=== PATIENT | female | born 1985 | race Caucasian/White ===

== ENCOUNTER 2017-09-06 19:03 | Emergency (ER) | payer SELFPAY ==
[2017-09-06] MEDS ORDERED: ONDANSETRON ODT 8 MG TAB SL ONE (19:29)
[2017-09-06] MEDS ORDERED: PROMETHAZINE HCL INJ 25 MG in SODIUM CHLORIDE 0.9% 50ML 50 ML IVPB ONE (19:29)
[2017-09-06] MEDS ORDERED: SODIUM CHLORIDE 0.9% 1000ML 1,000 ML IVS ONE ×2 (19:29→21:58)
[2017-09-06] MEDS ORDERED: KETOROLAC TROMETHAMINE INJ 30 MG/ML VIAL IV ONE (19:29)
[2017-09-06] MEDS ORDERED: SODIUM CHLORIDE 0.9% 50ML 50 ML ONE (19:41)
[2017-09-06] MEDS ORDERED: PROMETHAZINE HCL INJ 25 MG/ML VIAL ONE (19:41)
--- NOTE | 2017-09-06 21:52 | US ---
EXAM DESCRIPTION: Gall Bladder CLINICAL HISTORY: 31 years Female, pancreatitis, eval pancreas, gb and ducts COMPARISON: None. TECHNIQUE: Sonographic imaging of the gallbladder was performed. FINDINGS: Liver demonstrates homogenous echogenicity and measures 14.1 cm longitudinally. Normal directional flow in the main portal vein is noted. Several small shadowing stones in the dependent gallbladder are present measuring up to 8 mm. No evidence of gallbladder wall thickening. Gallbladder is normal in size. Common bile duct measures up to 9 mm in width and is enlarged. No obvious intrahepatic biliary ductal dilatation. Visualized pancreatic head and body appear slightly hypoechoic which may be related to acute pancreatitis. IMPRESSION: 1. Cholelithiasis. Dilatation of the common bile duct which may be related to choledocholithiasis. Follow-up with MRCP can be obtained as appropriate. 2. Questionable findings of acute pancreatitis. Electronically signed by: Yan Figueroa MD 09/06/2017 9:50 PM CDT
--- NOTE | 2017-09-06 22:27 | ED.PDOC ---
History of Present Illness - General Chief Complaint: Abdominal Pain Stated Complaint: upper middle abd pain Time Seen by Provider: 09/06/17 19:06 Source: patient Exam Limitations: no limitations - History of Present Illness Initial Comments: the patient is a 31-year-old female presenting to the emergency room secondary to 3 days of symptoms of some nausea with increasing abdominal pain and increasing frequency of vomiting. She presents with abdominal pain at a 10 out of 10. She is writhing in the bed. No fevers. No blood in the vomitus. No constipation or diarrhea. No history of any pancreatitis. No gallbladder problems in the past. No history of any significant gastritis. Aside from the gallstones found today she does not have any history that would put her at markedly increased risk for pancreatitis. Severity: severe Improving Factors: nothing Worsening Factors: eating Associated Symptoms: loss of appetite, malaise, nausea/vomiting Allergies/Adverse Reactions: Allergies Aspirin Allergy (Verified 09/06/17 19:19) Morphine Allergy (Verified 09/06/17 19:19) demeral Allergy (Uncoded 09/06/17 19:19) Review of Systems - Review of Systems Constitutional: States: malaise EENTM: States: no symptoms reported Respiratory: States: no symptoms reported Cardiology: States: no symptoms reported Gastrointestinal/Abdominal: States: abdominal pain, nausea, vomiting Genitourinary: States: no symptoms reported Musculoskeletal: States: no symptoms reported Skin: States: no symptoms reported Neurological: States: no symptoms reported Endocrine: States: no symptoms reported All other Systems: No Change from Baseline Past Medical History (General) - Patient Medical History Hx Diabetes: No - Vaccination History Immunizations Up to Date: No Family Medical History - Family History Father Family History: Unknown Physical Exam - Physical Exam General Appearance: Alert, Obvious distress Eye Exam: bilateral normal Ears, Nose, Throat: hearing grossly normal, normal ENT inspection, normal pharynx Neck: full range of motion, supple Respiratory: lungs clear, normal breath sounds, no respiratory distress, no accessory muscle use Cardiovascular/Chest: normal peripheral pulses, regular rate, rhythm, no edema Peripheral Pulses: radial,right: 2+, radial,left: 2+, dorsalis pedis,right: 2+, dorsalis pedis,left: 2+ Gastrointestinal/Abdominal: soft, other - periumbilical to epigastric discomfort palpation. No bruising. Rectal Exam: deferred Back Exam: normal inspection, no CVA tenderness, no vertebral tenderness Extremity: normal range of motion, non-tender, normal inspection, no pedal edema , normal capillary refill Neurologic: leverman II-XII nml as tested, alert, normal mood/affect, oriented x 3, other - the patient does look pale and dry Skin Exam: pallor Comments: Vital Signs - 24 hr 09/06/17 09/06/17 19:15 22:15 Temperature 97.4 F L 99.4 F Pulse Rate [ 58 L 58 L Left] Respiratory 18 18 Rate Blood Pressure 140/81 154/94 [Right Arm] O2 Sat by Pulse 100 98 Oximetry Progress - Progress Progress: 09/06/17 22:29 the patient's 31-year-old female presenting with acute pancreatitis at her first episode. Lipase is markedly elevated at 12,900. Review of her risk factors does not show any outstanding risk factors for pancreatitis except for the gallstones seen in the right upper quadrant ultrasound today. The dilated common bile duct may possibly be indicating a stone obstructing the distal aspect of the pancreatic duct. The patient is being transferred for further evaluation and higher level of care. She has received 2 L of IV fluids and a dose of Phenergan. She reports serious allergies to morphine and Demerol however she has reported that she can take Dilaudid. Phenergan seems to calm the symptoms down significantly. - Results/Orders Results/Orders: laboratory work from the clinic today: White blood cell count 9600, hemoglobin of 13, hematocrit 40, platelets 261, sodium 141, potassium 3.7, chloride 102, bicarbonate 30, BUN of 12, creatinine 0.57, calcium of 9.3, lipase of 12,960, amylase greater than 6000, AST of 111, ALT of 144, alkaline phosphatase of 75. Laboratory Tests 09/06/17 09/06/17 09/06/17 19:25 19:31 19:37 Lactic Acid LD Total Urine Color Yellow Urine Appearance Cloudy Urine pH >= 9.0 H* Ur Specific [place] 1.015 Urine Protein 100 H Urine Glucose (UA) Negative Urine Ketones 15 H Urine Blood Negative Urine Nitrite Negative Urine Bilirubin Negative Urine Urobilinogen 4.0 H Ur Leukocyte Esterase Negative Urine RBC 0 Urine WBC 0-1 Ur Epithelial Cells 3-5 Amorphous Sediment 4+ Urine Bacteria 0 Urine HCG, Qual Negative Urine Opiates Screen Negative Urine Barbiturates Negative Ur Phencyclidine Scrn Negative U Amphetamin/Meth Scrn Negative U Benzodiazepines Scrn Negative U Cocaine Metab Screen Negative U Cannabinoids Screen Negative 09/06/17 09/06/17 19:54 19:54 Lactic Acid 1.6 LD Total 159 Urine Color Urine Appearance Urine pH Ur Specific [place] Urine Protein Urine Glucose (UA) Urine Ketones Urine Blood Urine Nitrite Urine Bilirubin Urine Urobilinogen Ur Leukocyte Esterase Urine RBC Urine WBC Ur Epithelial Cells Amorphous Sediment Urine Bacteria Urine HCG, Qual Urine Opiates Screen Urine Barbiturates Ur Phencyclidine Scrn U Amphetamin/Meth Scrn U Benzodiazepines Scrn U Cocaine Metab Screen U Cannabinoids Screen right upper quadrant ultrasound shows a gallbladder with numerous small stones. Common bile duct is dilated to 9 mm. Pancreas is difficult to see secondary to overlying gas however does appear hypoechoic consistent with pancreatitis. Departure - Departure Clinical Impression: Acute pancreatitis due to calculus of common bile duct Disposition: Transfer to Hospital Condition: Serious Departure Forms: ED Discharge - Pt. Copy, Patient Portal Self Enrollment Transfer to Outside Facility - Transfer Information Accepting Provider:: dr stokes Accepting Facility: [facility] Reason for Transfer: required specialist not available
[2017-09-06 22:54] VITALS: BP 137/84; TEMP 99.1; O2SAT 99
== END 2017-09-06 23:15 | disposition short-term general hospital (02) ==
LOC: ER 19:03
DX: K85.10 Biliary acute pancreatitis without necrosis or infection (principal)
CPT/HCPCS: 36415; 76705; 80307; 81001; 81025; 83605; 83615; 87040; A4216; J1885; J2550; J7030

== ENCOUNTER → 2017-09-06 | Outpatient (CLI) | payer SELFPAY | LOC: LAB.O 15:06 | PROVIDERS: ATTEND Nurse Practitioner Family | DX: R10.84 Generalized abdominal pain (principal) ==

== ENCOUNTER → 2017-09-06 | Outpatient (CLI) | payer SELFPAY ==
--- NOTE | 2017-09-06 17:22 | RAD ---
EXAM DESCRIPTION: Abdomen Series CLINICAL HISTORY: 31 years Female, GENERALIZED ABDOMINAL PAIN COMPARISON: None. FINDINGS: Chest x-ray shows normal size of the heart with normal vascularity. The lungs are clear. No infiltrate or pleural effusion. No free air under the diaphragm. Upright view the abdomen shows no free air or abnormal air-fluid levels. Moderate amount of fecal material in the colon. If you have calcifications in the pelvis may be phleboliths plus colonic contents. IMPRESSION: Moderate fecal burden. Otherwise negative. Electronically signed by: Tio Castellano MD 09/06/2017 5:20 PM CDT
== END ==
LOC: RAD 15:19
PROVIDERS: ATTEND Nurse Practitioner Family
DX: R10.84 Generalized abdominal pain (principal)

== ENCOUNTER → 2018-03-16 | Outpatient (CLI) | payer BC ==
--- NOTE | 2018-03-16 17:32 | RAD ---
EXAM DESCRIPTION: Cervical Spine,3 Views CLINICAL HISTORY: CERVICALGIA COMPARISON: None Available. TECHNIQUE: AP/lateral/ open-mouth odontoid FINDINGS: Anatomic alignment of cervical vertebrae is seen on lateral view with visualization of C1-C7. Degenerative spurring is seen around the dens. No fracture or subluxation. No prevertebral soft tissue swelling. Normal craniocervical alignment. There is preservation of the spinal laminar line. No spinous process avulsion. Odontoid base appears intact. Normal alignment of the lateral margins of C1 and C2. AP view shows normal spinous process alignment with normal alignment of the lateral masses. Lung apices are clear. IMPRESSION: Negative for fracture or posttraumatic subluxation. Electronically signed by: Tio Castellano MD 03/16/2018 5:30 PM [facility]
== END ==
LOC: RAD 16:58
PROVIDERS: ATTEND Nurse Practitioner Family
DX: M54.2 Cervicalgia (principal)

== ENCOUNTER → 2018-06-14 | Outpatient (CLI) | payer BC | LOC: LAB.O 14:47 | PROVIDERS: ATTEND Nurse Practitioner Family | DX: R11.2 Nausea with vomiting, unspecified (principal) ==

== ENCOUNTER 2018-07-14 18:00 | Emergency (ER) | payer BC, OTHER ==
[2018-07-14 18:13] VITALS: TEMP 98.6; O2SAT 100
--- NOTE | 2018-07-14 18:14 | ED.PDOC ---
History of Present Illness - General Chief Complaint: Lower Extremity Injury Stated Complaint: dropped TV of right foot Time Seen by Provider: 07/14/18 18:11 Source: patient, RN notes reviewed Exam Limitations: no limitations Additional Information: 32 YEAR OLD DROPPED A BOX TV ON TO THE RIGHT FOOT 2 HOURS AGO HERE WITH PAIN ON THE DISTAL RIGHT FOOT SHE IS 8 WEEKS AT THIS TIME - History of Present Illness Timing/Duration: 1-3 hours Severity: mild Improving Factors: nothing Worsening Factors: nothing Associated Symptoms: denies symptoms Allergies/Adverse Reactions: Allergies Aspirin Allergy (Verified 09/06/17 19:19) Morphine Allergy (Verified 09/06/17 19:19) demeral Allergy (Uncoded 09/06/17 19:19) Home Medications: Ambulatory Orders Multivit-Min W/Fe-FA [Pre-Linda Formula] 1 tab PO DAILY 06/23/18 Acetamin W/Cod #3 Tab [Tylenol w/CODEINE #3] 1 ea PO Q6HR PRN #40 tab 07/14/18 Review of Systems - Review of Systems Constitutional: States: no symptoms reported EENTM: States: no symptoms reported Respiratory: States: no symptoms reported Cardiology: States: no symptoms reported Gastrointestinal/Abdominal: States: no symptoms reported Genitourinary: States: no symptoms reported Musculoskeletal: States: see HPI Skin: States: no symptoms reported Neurological: States: no symptoms reported Endocrine: States: no symptoms reported Hematologic/Lymphatic: States: no symptoms reported Past Medical History (General) - Patient Medical History Hx Seizures: No Hx Stroke: No Hx Dementia: No Hx Asthma: No Hx of COPD: No Hx Cardiac Disorders: No Hx Congestive Heart Failure: No Hx Pacemaker: No Hx Hypertension: No Hx Thyroid Disease: No Hx Diabetes: Yes Hx Gastroesophageal Reflux: No Hx Renal Disease: No Hx Cancer: No Hx of HIV: No Hx Hepatitis C: No Hx MRSA: No - Vaccination History Hx Tetanus, Diphtheria Vaccination: No Hx Influenza Vaccination: No Hx Pneumococcal Vaccination: No - Social History Hx Tobacco Use: No Hx Alcohol Use: No Hx Substance Use: No Hx Depression: No - Female History Hx Last Menstrual Period: 04/17/18 Patient : Yes Family Medical History - Family History Father Family History: Unknown Physical Exam - Physical Exam General Appearance: Anxious Eye Exam: bilateral normal Ears, Nose, Throat: hearing grossly normal, normal ENT inspection, normal pharynx Neck: non-tender, full range of motion, supple Respiratory: chest non-tender, lungs clear, normal breath sounds, no respiratory distress Cardiovascular/Chest: normal peripheral pulses, regular rate, rhythm, no edema, no gallop Peripheral Pulses: radial,right: 2+ Gastrointestinal/Abdominal: normal bowel sounds, non tender, soft, no organomegaly Back Exam: normal inspection, no CVA tenderness, no vertebral tenderness Extremity: normal range of motion, other - RIGHT FOOT MINIMAL SWELLING AND TENDERNESS NOTED SHE IS HOWEVER LIMPING NOT ABLE TO BEAR WEIGHT Departure - Departure Clinical Impression: Contusion of foot, right, First trimester Time of Disposition: 19:04 Disposition: Discharge to Home or Self Care Condition: Fair Departure Forms: ED Discharge - Pt. Copy, Patient Portal Self Enrollment Instructions: DI for Leg Pain Diet: resume usual diet Referrals: Danial Glover MD [Primary Care Provider] - 1-2 Weeks Prescriptions: Acetamin W/Cod #3 Tab [Tylenol w/CODEINE #3] 1 ea PO Q6HR PRN #40 tab PRN Reason: Mild To Moderate Pain Home Medications: Ambulatory Orders Multivit-Min W/Fe-FA [Pre- Formula] 1 tab PO DAILY 06/23/18 Acetamin W/Cod #3 Tab [Tylenol w/CODEINE #3] 1 ea PO Q6HR PRN #40 tab 07/14/18
[2018-07-14] MEDS ORDERED: HYDROcodone 7.5MG/APAP 325MG 1 EA TAB PO ONE (18:16)
[2018-07-14 19:31] VITALS: BP 108/82
--- NOTE | 2018-07-14 19:49 | RAD ---
EXAM DESCRIPTION: Foot,Right 3 Views CLINICAL HISTORY: 32 years Female TRAUMA COMPARISON: None TECHNIQUE: Three images of the right foot were obtained. FINDINGS: No fracture seen. Normal bony mineralization. No erosive or lytic lesions seen. No radiopaque foreign body. IMPRESSION: No acute fracture or dislocation seen. Electronically signed by: Mila Kiser MD 07/14/2018 7:47 PM CDT
== END 2018-07-14 19:20 | disposition home or self-care (01) ==
LOC: ER 18:00
DX: O9A.211 Injury, poisoning and certain other consequences of external causes complicating pregnancy, first trimester (principal); S90.31XA Contusion of right foot, initial encounter; O24.111 Pre-existing type 2 diabetes mellitus, in pregnancy, first trimester; E11.9 Type 2 diabetes mellitus without complications; Z3A.08 8 weeks gestation of pregnancy; Z88.6 Allergy status to analgesic agent; Z88.5 Allergy status to narcotic agent; W20.8XXA Other cause of strike by thrown, projected or falling object, initial encounter; Y92.9 Unspecified place or not applicable

== ENCOUNTER 2018-07-24 20:24 | Emergency (ER) | payer OTHER ==
[2018-07-24 20:41] VITALS: TEMP 98.5; O2SAT 100
--- NOTE | 2018-07-24 21:03 | ED.PDOC ---
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 She says that it has been brief but yesterday last almost 40 minutes. She has a small amount of blood several days ago that was not accompanied by pain. Here U/S verified an intrauterine . She says that she has a history of ovarian cysts and that they have ruptured before. She has not had any other symptoms. Timing/Duration: intermittent Severity: mild Improving Factors: nothing Worsening Factors: nothing Associated Symptoms: denies symptoms Allergies/Adverse Reactions: Allergies Aspirin Allergy (Verified 09/06/17 19:19) Morphine Allergy (Verified 09/06/17 19:19) demeral Allergy (Uncoded 09/06/17 19:19) Home Medications: Ambulatory Orders Multivit-Min W/Fe-FA [Pre-Linda Formula] 1 tab PO DAILY 06/23/18 Review of Systems - Review of Systems Constitutional: States: no symptoms reported EENTM: States: no symptoms reported Respiratory: States: no symptoms reported Cardiology: States: no symptoms reported Gastrointestinal/Abdominal: States: no symptoms reported Genitourinary: States: see HPI Musculoskeletal: States: no symptoms reported Skin: States: no symptoms reported Neurological: States: no symptoms reported Endocrine: States: no symptoms reported Hematologic/Lymphatic: States: no symptoms reported Past Medical History (General) - Patient Medical History Hx Seizures: No Hx Stroke: No Hx Dementia: No Hx Asthma: No Hx of COPD: No Hx Cardiac Disorders: No Hx Congestive Heart Failure: No Hx Pacemaker: No Hx Hypertension: No Hx Thyroid Disease: No Hx Diabetes: Yes Hx Gastroesophageal Reflux: No Hx Renal Disease: No Hx Cancer: No Hx of HIV: No Hx Hepatitis C: No Hx MRSA: No Surgical History: cholecystectomy - Vaccination History Hx Tetanus, Diphtheria Vaccination: No Hx Influenza Vaccination: Yes Hx Pneumococcal Vaccination: No - Social History Hx Tobacco Use: No Hx Alcohol Use: No Hx Substance Use: No Hx Depression: No - Female History Patient is a Female of Child Bearing Age (10 -59 yrs old): Yes Hx Last Menstrual Period: 04/17/18 Patient : Yes Expected Date of Delivery:: 02/01/19 Family Medical History - Family History Father Family History: Unknown Physical Exam - Physical Exam General Appearance: Alert Eye Exam: bilateral normal Ears, Nose, Throat: normal ENT inspection Neck: non-tender, full range of motion, supple Respiratory: lungs clear, normal breath sounds Cardiovascular/Chest: normal peripheral pulses, regular rate, rhythm Gastrointestinal/Abdominal: normal bowel sounds, non tender, soft Back Exam: normal inspection, no CVA tenderness Extremity: normal range of motion, non-tender, normal inspection Neurologic: no motor/sensory deficits, alert, normal mood/affect, oriented x 3 Skin Exam: normal color Lymphatic: no adenopathy Progress - Progress Progress: 07/24/18 22:09 Laboratory Tests 07/24/18 07/24/18 07/24/18 20:49 20:49 20:50 WBC 5.2 RBC 3.98 L Hgb 12.0 Hct 34.9 L MCV 87.6 MCH 30.2 MCHC 34.5 RDW 13.4 Plt Count 233 MPV 7.6 Absolute Neuts (auto) 3.60 Absolute Lymphs (auto) 0.90 L Absolute Monos (auto) 0.50 Absolute Eos (auto) 0.10 Absolute Basos (auto) 0.00 Neutrophils % 70.7 Lymphocytes % 17.9 L Monocytes % 9.1 H Eosinophils % 1.9 Basophils % 0.4 Sodium 136 Potassium 3.7 Chloride 105 Carbon Dioxide 24 Anion Gap 10.7 L BUN 12 Creatinine 0.47 L BUN/Creatinine Ratio 25.5 H Random Glucose 98 Serum Osmolality 271.7 L Calcium 8.7 Total Bilirubin 0.6 AST 16 ALT 13 Alkaline Phosphatase 33 L Serum Total Protein 6.8 Albumin 3.3 Globulin 3.5 Albumin/Globulin Ratio 0.9 L Lipase 52 H Urine Color Urine Appearance Urine pH Ur Specific [place] Urine Protein Urine Glucose (UA) Urine Ketones Urine Blood Urine Nitrite Urine Bilirubin Urine Urobilinogen Ur Leukocyte Esterase Urine RBC Urine WBC Ur Epithelial Cells Amorphous Sediment Urine Bacteria Urine Mucus 07/24/18 21:36 WBC RBC Hgb Hct MCV MCH MCHC RDW Plt Count MPV Absolute Neuts (auto) Absolute Lymphs (auto) Absolute Monos (auto) Absolute Eos (auto) Absolute Basos (auto) Neutrophils % Lymphocytes % Monocytes % Eosinophils % Basophils % Sodium Potassium Chloride Carbon Dioxide Anion Gap BUN Creatinine BUN/Creatinine Ratio Random Glucose Serum Osmolality Calcium Total Bilirubin AST ALT Alkaline Phosphatase Serum Total Protein Albumin Globulin Albumin/Globulin Ratio Lipase Urine Color Yellow Urine Appearance Sl cloudy Urine pH 7.0 Ur Specific [place] 1.025 Urine Protein Negative Urine Glucose (UA) Negative Urine Ketones Negative Urine Blood Negative Urine Nitrite Negative Urine Bilirubin Negative Urine Urobilinogen 1.0 Ur Leukocyte Esterase Negative Urine RBC 0 Urine WBC 1-3 Ur Epithelial Cells 10-20 Amorphous Sediment 2+ Urine Bacteria 0 Urine Mucus Trace FHTs 140s. Patient has some mild bleeding in the E.R. This is most likely a threatened . Serum quantitative HCG was taken. Dr. Grossman was notified and he agreed with pelvic rest and to call him in the morning. Care instructions given. E.R. warnings given. Questions were elicited and answered. Patient voiced understanding and agreement with the plan. Departure - Departure Clinical Impression: Threatened Disposition: Discharge to Home or Self Care Condition: Fair Departure Forms: ED Discharge - Pt. Copy, Patient Portal Self Enrollment Instructions: Threatened Miscarriage (DC) Diet: resume usual diet Activity: other - Pelvis rest. Referrals: Danial Glover MD [Primary Care Provider] - 1-2 Weeks Home Medications: Ambulatory Orders Multivit-Min W/Fe-FA [Pre- Formula] 1 tab PO DAILY 06/23/18 Additional Instructions: Pelvic rest. Do not put anything into the vagina or have vaginal intercourse. Call Dr. Grossman in the morning for further instructions and follow up.
[2018-07-24 21:33] VITALS: BP 97/65
== END 2018-07-24 22:20 | disposition home or self-care (01) ==
LOC: ER 20:24
DX: O20.0 Threatened abortion (principal); O24.111 Pre-existing type 2 diabetes mellitus, in pregnancy, first trimester; E11.9 Type 2 diabetes mellitus without complications; Z3A.13 13 weeks gestation of pregnancy; Z90.49 Acquired absence of other specified parts of digestive tract; Z88.6 Allergy status to analgesic agent; Z88.5 Allergy status to narcotic agent; Z87.42 Personal history of other diseases of the female genital tract

== ENCOUNTER → 2019-02-22 | Outpatient (CLI) | payer OTHER ==
--- NOTE | 2019-02-24 09:23 | US ---
EXAM DESCRIPTION: Soft Tissue,Extremity: ULTRASOUND. CLINICAL HISTORY: 33 years Female pain in left wrist. Soft tissue swelling after IV removed. COMPARISON: None Available. TECHNIQUE: Transcutaneous scanning: Yadav-scale and Doppler modes. FINDINGS: Scanning of the radial left wrist. No soft tissue mass or dominant solid mass. No fluid collection or edema. No large calcifications. IMPRESSION: No ultrasound abnormality scanning the radial left wrist. Electronically signed by: Haroldo Garcia MD 02/24/2019 9:21 AM [facility]
== END ==
LOC: US 13:03
PROVIDERS: ATTEND Nurse Practitioner
DX: M25.532 Pain in left wrist (principal)

== ENCOUNTER 2019-11-14 10:41 | Emergency (ER) | payer OTHER ==
[2019-11-14 11:01] VITALS: TEMP 98.2
--- NOTE | 2019-11-14 11:19 | ED.PDOC ---
History of Present Illness - General Chief Complaint: General Stated Complaint: Fever, Cough, Loss of taste, Body aches Time Seen by Provider: 11/14/19 10:57 Source: patient Exam Limitations: no limitations - History of Present Illness Initial Comments: LAST NIGHT, STARTED HAVING COUGH, SOB, ARMENTA, F/C/S, MYALGIAS, ANOSMIA, LOSS OF TASTE. TEMP THIS AM 103. NO KNOWN SICK CONTACTS. CONCERN FOR COVID. Timing/Duration: 24 hours Severity: severe Improving Factors: nothing Worsening Factors: nothing Associated Symptoms: cough, headaches, shortness of breath Allergies/Adverse Reactions: Allergies Morphine Allergy (Verified 11/14/19 11:01) demeral Allergy (Uncoded 11/14/19 11:01) Review of Systems - Review of Systems Constitutional: States: chills, fever, malaise EENTM: Denies: ear pain, nose congestion, throat pain Respiratory: States: cough, short of breath Cardiology: Denies: chest pain, palpitations Gastrointestinal/Abdominal: Denies: abdominal pain, nausea Genitourinary: Denies: dysuria, frequency Musculoskeletal: States: muscle pain. Denies: back pain, neck pain Skin: Denies: lesions, rash Neurological: States: headache. Denies: paresthesia Endocrine: States: intolerance to cold, intolerance to heat Hematologic/Lymphatic: Denies: easy bleeding, easy bruising All other Systems: Reviewed and Negative Past Medical History (General) - Patient Medical History Hx Seizures: No Hx Stroke: No Hx Dementia: No Hx Asthma: No Hx of COPD: No Hx Cardiac Disorders: No Hx Congestive Heart Failure: No Hx Pacemaker: No Hx Hypertension: No Hx Thyroid Disease: No Hx Diabetes: Yes Hx Gastroesophageal Reflux: No Hx Renal Disease: No Hx Cancer: No Hx of HIV: No Hx Hepatitis C: No Hx MRSA: No - Vaccination History Hx Tetanus, Diphtheria Vaccination: No Hx Influenza Vaccination: Yes Hx Pneumococcal Vaccination: No - Social History Hx Tobacco Use: No Hx Alcohol Use: No Hx Substance Use: No Hx Depression: No - Activities of Daily Living Hospice Agency (if applicable):: None - Female History Hx Last Menstrual Period: 04/17/18 Patient : No Expected Date of Delivery:: 02/01/19 Family Medical History - Family History Father Family History: Unknown Physical Exam - Physical Exam General Appearance: Alert, Ill Appearing, Other - UNCOMFORTABLE Eye Exam: bilateral normal Ears, Nose, Throat: normal ENT inspection, normal pharynx Neck: non-tender, supple Respiratory: lungs clear, normal breath sounds, no respiratory distress, no accessory muscle use Cardiovascular/Chest: no murmur, tachycardia - REGULAR RHYTHM Peripheral Pulses: radial,right: 1+, radial,left: 1+ Gastrointestinal/Abdominal: normal bowel sounds, non tender, soft, no organomegaly Rectal Exam: deferred Back Exam: normal inspection, no CVA tenderness Extremity: normal range of motion, no pedal edema, no calf tenderness Neurologic: no motor/sensory deficits, alert Skin Exam: normal color, warm/dry Lymphatic: no adenopathy Progress - Progress Progress: 11/14/19 13:16 PT IS REFUSING IVF, DESPITE WARNINGS OF HER ELEVATED LFT'S, BILI, TACHYCARDIA FROM DEHYDRATION, AND THAT HER HEALTH STATUS COULD WORSEN A RESULT. SHE EXPRESSED UNDERSTANDING AND STILL REFUSES IVF BOLUS BECAUSE SHE "DOES NOT WANT TO GET STUCK AGAIN." 11/14/19 15:19 LIVER U/S COMPLETED. REPORT PENDING. 11/14/19 16:57 LIVER U/S NEG FOR CONCERNS (NO CIRRHOSIS). GB SURGICALLY ABSENT. FLU AND COVID NEG. CBC WBC LOW AT 2.6, THUS HER ELEVATED LFT'S ARE NOT FROM INFECTIOUS MONONUCLEOSIS. CMP - Na 130. K+ 3.2 (GAVE KCL PO). BILI HIGH AT 2.8. AST 652. ALT 577. ALK PHOS 294. ORDERED HEPATITIS PANEL (SEND OUT) AND LIVER U/S (WAS NEG). GAVE IBUPROFEN FOR HER ARMENTA. SHE HAS AN ACTUE VIRAL RESPIRATORY IFXN (COUGH, DYSPNEA, ANOSMIA, ARMENTA, F/C/S, MYALGIAS) BUT IT IS NOT FLU OR COVID. TACHYCARDIA RESOLVED IN ER. NO HYPOXIA IN ER. SATS NL. NO TACHYPNEA. PE NEG. NO WHEEZE. NO TOBACCO USE. THUS LOW RISK AND WILL RECOVER WELL AT HOME. TINCTURE OF TIME. REST AND FLUIDS. SAFE FOR DC. RETURN PRECAUTIONS GIVEN. Departure - Departure Clinical Impression: Viral infection, Anosmia, Myalgia, Lymphopenia, Hyponatremia, Hypokalemia, Bilirubinemia, Elevated liver enzymes Dyspnea Qualifiers: Dyspnea type: shortness of breath Qualified Code(s): R06.02 - Shortness of breath; R06.00 - Dyspnea, unspecified; R06.01 - Orthopnea Fever Qualifiers: Fever type: unspecified Qualified Code(s): R50.9 - Fever, unspecified Disposition: Discharge to Home or Self Care Condition: Fair Departure Forms: ED Discharge - Pt. Copy, Patient Portal Self Enrollment Instructions: Viral Upper Respiratory Infection, Adult (DC) Diet: bland diet Activity: increase activity as tolerated Referrals: Maria Victoria Hamilton ELEMENTARY EDUCATION TEACHER [Primary Care Provider] - 1-2 Weeks Additional Instructions: Your liver function tests were high today. Please see Maria Victoria Hamilton in 2 weeks to repeat your lab tests to ensure they are improving. Please get plenty of rest to recover from the viral infection. Your sodium and potassium as low today. Please drink Gatorade and water to stay hydrated and raise these electrolytes.
--- NOTE | 2019-11-14 11:36 | RAD ---
EXAM DESCRIPTION: Chest,1 View CLINICAL HISTORY: DYSPNEA, COUGH, FEVERS COMPARISON: None available FINDINGS: The cardiomediastinal silhouette is unremarkable. There is no airspace consolidation or pleural effusion. The bronchovascular markings are within normal limits, and the lungs are not hyperinflated. There is no pneumothorax or acute fracture. IMPRESSION: Negative exam. Electronically signed by: Kong Weaver MD 11/14/2019 11:33 AM CDT
[2019-11-14] MEDS ORDERED: SODIUM CHLORIDE 0.9% 1000ML 1,000 ML IVS ONE (12:46)
[2019-11-14] MEDS ORDERED: IBUPROFEN 200 MG TAB PO ONE (12:47)
[2019-11-14] MEDS ORDERED: POTASSIUM CHLORIDE 20 MEQ TAB PO ONE (12:56)
--- NOTE | 2019-11-14 16:11 | US ---
EXAM DESCRIPTION: Liver: ULTRASOUND. CLINICAL HISTORY: ELEVATED LFTS, BILIRUBIN, ALKALINE PHOSPHATE. COMPARISON: None. TECHNIQUE: Transabdominal scannin-dimensional and Doppler modes. FINDINGS: Gallbladder: Surgically removed. No fluid in the gallbladder fossa Non-tender with transducer pressure. Common bile duct: caliber 5.0 mm within normal limits. Liver: normal echogenicity; contour liver capsule smooth where seen. No fluid around the liver. Intrahepatic biliary ducts normal caliber. Doppler hepatopedal flow portal vein. 9.0 mm normal caliber Long axis right lobe 15.4 cm Pancreas: normal size and echogenicity. Duct not seen. Right kidney: long axis measures 8.6 cm. Volume 87.9 ml. Echogenicity normal in cortex. Normal cortical thickness. No echogenic stones in the: No hydronephrosis. Aorta proximal: 1.5 cm normal caliber. IMPRESSION: 1. Liver, common bile duct, pancreas, right kidney are unremarkable. No ascites. 2. Prior cholecystectomy. No fluid in the gallbladder fossa. Electronically signed by: Haroldo Garcia MD 11/14/2019 4:09 PM CDT
[2019-11-14 17:07] VITALS: BP 121/78; O2SAT 98
== END 2019-11-14 17:00 | disposition home or self-care (01) ==
LOC: ER 10:41
DX: B34.9 Viral infection, unspecified (principal); R43.0 Anosmia; M79.10 Myalgia, unspecified site; D72.810 Lymphocytopenia; E80.7 Disorder of bilirubin metabolism, unspecified; E87.1 Hypo-osmolality and hyponatremia; E87.6 Hypokalemia; R06.02 Shortness of breath; R94.5 Abnormal results of liver function studies; E11.9 Type 2 diabetes mellitus without complications; Z20.828 Contact with and (suspected) exposure to other viral communicable diseases; Z88.5 Allergy status to narcotic agent
CPT/HCPCS: 71045; 76705; 80053; 80074; 85025; 87502; 87635; J7030

== ENCOUNTER 2019-11-16 17:46 | Emergency (ER) | payer OTHER ==
[2019-11-16] MEDS ORDERED: SODIUM CHLORIDE 0.9% (FLUSH) 10 ML SYG IV PRN (18:17)
[2019-11-16] MEDS ORDERED: ONDANSETRON INJ 4 MG/2 ML VIAL IV ONE (18:17)
[2019-11-16] MEDS ORDERED: SODIUM CHLORIDE 0.9% 1000ML 1,000 ML IVS ONE (18:17)
--- NOTE | 2019-11-16 19:41 | RAD ---
EXAM DESCRIPTION: XR Chest, 1 View CLINICAL HISTORY: cough TECHNIQUE: Single frontal view of the chest is submitted. COMPARISON: 11/14/2019 FINDINGS: Heart: The cardiothoracic silhouette is within normal limits. Lungs: No focal consolidation. Mediastinum: Unremarkable Pleura: No appreciable effusion. No pneumothorax. Bones: Intact Upper abdomen: Surgical clips project over the right upper quadrant. IMPRESSION: No acute disease. Electronically signed by: Lauro Felix MD 11/16/2019 7:39 PM CDT
--- NOTE | 2019-11-16 19:59 | ED.PDOC ---
History of Present Illness - General Chief Complaint: General Stated Complaint: n/v cough bodyaches Time Seen by Provider: 11/16/19 18:17 Source: patient, RN notes reviewed, Vital Signs reviewed, family, old records - from ED visit on 11/14/19. Exam Limitations: no limitations - History of Present Illness Initial Comments: Patient is a 34-year-old white female who presents with complaints of nausea, vomiting and worsening abdominal pain over the last 2 days. She was seen here 2 days ago for similar symptoms and was diagnosed with elevated bilirubin and liver enzymes and discharged home. Patient symptoms have continued and worsened. Patient complains that her eyes appear more yellow than they did in the past. Patient is also complaining of itching over her whole body. Nothing seems to make the itching or the vomiting better. It is worse when she tries to eat or drink anything. Timing/Duration: other - 3 days Severity: moderate Improving Factors: nothing Worsening Factors: eating Associated Symptoms: loss of appetite, other - itching Allergies/Adverse Reactions: Allergies Morphine Allergy (Verified 11/16/19 18:01) demeral Allergy (Uncoded 11/16/19 18:01) Home Medications: Ambulatory Orders NK 11/16/19 Review of Systems - Review of Systems Constitutional: States: see HPI, malaise. Denies: chills, fever, weakness EENTM: States: no symptoms reported. Denies: eye pain, blurred vision, double vision Respiratory: States: no symptoms reported. Denies: cough, short of breath, stridor Cardiology: States: no symptoms reported. Denies: chest pain, palpitations, syncope Gastrointestinal/Abdominal: States: see HPI, abdominal pain, nausea, vomiting. Denies: constipation, diarrhea Genitourinary: States: no symptoms reported. Denies: dysuria, frequency Musculoskeletal: States: no symptoms reported. Denies: back pain, joint swelling, neck pain Skin: States: change in color, dryness, other - itching Neurological: States: no symptoms reported. Denies: headache, numbness, par esthesia, tingling Endocrine: States: no symptoms reported. Denies: increased hunger, increased thirst, increased urine Hematologic/Lymphatic: States: no symptoms reported. Denies: blood clots, easy bleeding All other Systems: Reviewed and Negative, No Change from Baseline Past Medical History (General) - Patient Medical History Hx Seizures: No Hx Stroke: No Hx Dementia: No Hx Asthma: No Hx of COPD: No Hx Cardiac Disorders: No Hx Congestive Heart Failure: No Hx Pacemaker: No Hx Hypertension: No Hx Thyroid Disease: No Hx Diabetes: No Hx Gastroesophageal Reflux: No Hx Renal Disease: No Hx Cancer: No Hx of HIV: No Hx Hepatitis C: No Hx MRSA: No - Vaccination History Hx Tetanus, Diphtheria Vaccination: No Hx Influenza Vaccination: Yes Hx Pneumococcal Vaccination: No - Social History Hx Tobacco Use: No Hx Alcohol Use: No Hx Substance Use: No Hx Depression: No - Female History Patient is a Female of Child Bearing Age (10 -59 yrs old): Yes Hx Last Menstrual Period: 04/17/18 Patient : No Expected Date of Delivery:: 02/01/19 Family Medical History - Family History Father Family History: Unknown Physical Exam - Physical Exam General Appearance: Alert, Anxious, Obvious distress, Well Developed, Well Groomed, Well Hydrated, Well Nourished Eye Exam: bilateral scleral icterus Ears, Nose, Throat: hearing grossly normal, normal ENT inspection, normal pharynx Neck: non-tender, full range of motion, supple, normal inspection Respiratory: chest non-tender, lungs clear, normal breath sounds, no respiratory distress, no accessory muscle use Cardiovascular/Chest: normal peripheral pulses, no edema, no gallop, no JVD, no murmur, tachycardia Peripheral Pulses: radial,right: 2+, radial,left: 2+ Gastrointestinal/Abdominal: normal bowel sounds, soft, tenderness - epigastric. 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 11/16/19 20:10 Patient with markedly worsening LFTs and elevated bilirubin. Plan on transfer to [facility] where we can get GI care. I have reviewed her old ultrasound, from 2 days ago, and is unremarkable. I have discussed this plan of care with the patient she voices understanding and agreement. I have received acceptance from Dr. Cormier in the emergency department at [facility]. Plan on transfer at this time. Julio Cesar Brewster M.D. #[id number] - Results/Orders Results/Orders: 11/16/19 18:17 IV Care:Saline Lock per Protoc QSHIFT Sodium Chloride 0.9% (Flush) [Saline Flush Syringe] 10 ml IV PRN PRN URINALYSIS Stat 11/16/19 18:18 RAPID SARS-CoV-2 RNA Stat Laboratory Results - last 24 hr 11/16/19 11/16/19 11/16/19 18:20 18:20 18:20 WBC 3.8 L RBC 5.37 Hgb 15.6 Hct 45.4 MCV 84.5 MCH 29.0 MCHC 34.3 RDW 13.2 Plt Count 235 MPV 8.2 Absolute Neuts (auto) 2.40 Absolute Lymphs (auto) 0.80 L Absolute Monos (auto) 0.30 Absolute Eos (auto) 0.30 Absolute Basos (auto) 0.00 Neutrophils % 62.9 Lymphocytes % 21.2 Monocytes % 7.6 Eosinophils % 7.4 H Basophils % 0.9 Sodium 137 Potassium 3.3 L Chloride 99 L Carbon Dioxide 26 Anion Gap 15.3 BUN 7 Creatinine 0.46 L D BUN/Creatinine Ratio 15.2 Random Glucose 101 Serum Osmolality 271.9 L Calcium 8.6 Total Bilirubin 8.2 H* D Direct Bilirubin 4.7 H Indirect Bilirubin 3.5 H AST 1155 H D ALT 1266 H D Alkaline Phosphatase 377 H D Serum Total Protein 8.5 H Albumin 4.2 Lipase 54 H EXAM DESCRIPTION: XR Chest, 1 View CLINICAL HISTORY: cough TECHNIQUE: Single frontal view of the chest is submitted. COMPARISON: 11/14/2019 FINDINGS: Heart: The cardiothoracic silhouette is within normal limits. Lungs: No focal consolidation. Mediastinum: Unremarkable Pleura: No appreciable effusion. No pneumothorax. Bones: Intact Upper abdomen: Surgical clips project over the right upper quadrant. IMPRESSION: No acute disease. Electronically signed by: Lauro Felix MD 11/16/2019 7:39 PM CDT Vital Signs 11/16/19 11/16/19 17:57 19:06 Temperature 98.0 F 98.2 F Pulse Rate [ 104 H 103 H monitor] Respiratory 18 18 Rate Blood Pressure 130/81 113/81 [la] O2 Sat by Pulse 96 99 Oximetry Departure - Departure Clinical Impression: Hyperbilirubinemia, Elevated liver function tests, Dehydration Nausea and vomiting Qualifiers: Vomiting type: unspecified Vomiting Intractability: non-intractable Qualified Code(s): R11.2 - Nausea with vomiting, unspecified Time of Disposition: 20:12 Disposition: Transfer to Hospital Condition: Fair Departure Forms: ED Discharge - Pt. Copy, Patient Portal Self Enrollment Diet: full liquid diet Activity: increase activity as tolerated Referrals: Maria Victoria Hamilton NP [Primary Care Provider] - 1-2 Weeks Home Medications: Ambulatory Orders NK 11/16/19 Transfer to Outside Facility - Transfer Information Decision to Transfer Date: 11/16/19 Decision to Transfer Time: 19:35 Reason for Transfer: required specialist not available Accepting Facility: [facility]
[2019-11-16 21:17] VITALS: BP 121/95; TEMP 97.2; O2SAT 98
== END 2019-11-16 20:40 | disposition short-term general hospital (02) ==
LOC: ER 17:46
DX: R11.2 Nausea with vomiting, unspecified (principal); E86.0 Dehydration; R94.5 Abnormal results of liver function studies; E80.6 Other disorders of bilirubin metabolism; L29.9 Pruritus, unspecified; Z88.5 Allergy status to narcotic agent
CPT/HCPCS: 36415; 71045; 80048; 80076; 83690; 85025; J2405; J7030

== ENCOUNTER → 2019-11-22 | Outpatient (CLI) | payer OTHER | LOC: LAB.O 10:49 | PROVIDERS: ATTEND Family Medicine | DX: B17.10 Acute hepatitis C without hepatic coma (principal) ==

== ENCOUNTER → 2019-11-28 | Outpatient (CLI) | payer OTHER | LOC: LAB.O 11:13 | PROVIDERS: ATTEND Family Medicine | DX: B17.10 Acute hepatitis C without hepatic coma (principal) ==

== ENCOUNTER → 2019-12-15 | Outpatient (CLI) | payer OTHER ==
--- NOTE | 2019-12-17 16:40 | RAD ---
EXAM: KUB CLINICAL HISTORY: LEFT FLANK PAIN COMPARISON STUDY: September 06, 2017 TECHNICAL: A single view of the abdomen was performed. FINDINGS: Single view of the abdomen shows a large amount of stool throughout the colon. There is no bowel obstruction. There is no evidence of free air. There are no abnormal calcifications. The bones are negative. IMPRESSION: THE AMOUNT OF STOOL SUGGESTS CONSTIPATION. THE EXAM IS OTHERWISE NEGATIVE. Electronically signed by: Enmanuel Raman MD 12/17/2019 4:39 PM SENIOR EDUCATION SPECIALIST
== END ==
LOC: RAD 10:59
PROVIDERS: ATTEND Nurse Practitioner Family
DX: R10.9 Unspecified abdominal pain (principal)

== ENCOUNTER 2019-12-29 11:06 | Emergency (ER) | payer OTHER ==
--- NOTE | 2019-12-29 11:18 | ED.PDOC ---
History of Present Illness - General Time Seen by Provider: 12/29/19 11:07 Source: patient, RN notes reviewed, Vital Signs reviewed Exam Limitations: no limitations - History of Present Illness Initial Comments: 34 yo RHD female trying to carry a plate while climbing over a baby gate and fell onto right hand. Did not hit head, no other injuries. FOOSH. Allergies/Adverse Reactions: Allergies Morphine Allergy (Verified 11/16/19 18:01) demeral Allergy (Uncoded 11/16/19 18:01) Home Medications: Ambulatory Orders NK 11/16/19 Review of Systems - Review of Systems Constitutional: Denies: chills, fever EENTM: Denies: blurred vision, throat pain Respiratory: Denies: cough, short of breath Cardiology: Denies: chest pain, palpitations Gastrointestinal/Abdominal: Denies: abdominal pain, diarrhea Genitourinary: Denies: dysuria, hematuria Musculoskeletal: States: see HPI, joint pain, joint swelling Skin: Denies: rash Neurological: Denies: headache, numbness, paresthesia, weakness Endocrine: Denies: unexplained weight gain, unexplained weight loss Hematologic/Lymphatic: Denies: easy bleeding, easy bruising Past Medical History (General) - Patient Medical History Hx Seizures: No Hx Stroke: No Hx Dementia: No Hx Asthma: No Hx of COPD: No Hx Cardiac Disorders: No Hx Congestive Heart Failure: No Hx Pacemaker: No Hx Hypertension: No Hx Thyroid Disease: No Hx Diabetes: No Hx Gastroesophageal Reflux: No Hx Renal Disease: No Hx Cancer: No Hx of HIV: No Hx Hepatitis C: No Hx MRSA: No - Vaccination History Hx Tetanus, Diphtheria Vaccination: No Hx Influenza Vaccination: Yes Hx Pneumococcal Vaccination: No - Social History Hx Tobacco Use: No Hx Alcohol Use: No Hx Substance Use: No Hx Depression: No - Female History Hx Last Menstrual Period: 04/17/18 Patient : No Expected Date of Delivery:: 02/01/19 Family Medical History - Family History Father Family History: Unknown Physical Exam - Physical Exam General Appearance: Alert, Comfortable, No apparent distress, Well Developed, Well Groomed, Well Hydrated, Well Nourished Eyes, Ears, Nose, Throat Exam: PERRL/EOMI, normal ENT inspection Neck: non-tender, full range of motion, supple, normal inspection Cardiovascular/Respiratory: regular rate, rhythm, no M/R/G, normal peripheral pulses, no JVD, normal breath sounds, no respiratory distress Abdominal Exam: non-tender, no organomegaly Back Exam: normal inspection, no CVA tenderness, no vertebral tenderness Shoulder Exam: normal inspection, non-tender, no evidence of injury, normal ROM Elbow/Forearm Exam: normal inspection, non-tender, no evidence of injury, normal ROM Wrist Exam: non-tender, no evidence of injury, normal ROM Hand Exam: normal inspection, no evidence of injury, normal ROM Neuro/Tendon: normal sensation, normal motor functions, normal tendon functions, responds to pain, no evidence tendon injury Mental Status: alert, oriented x 3 Skin Exam: normal color, warm/dry Progress - Progress Progress: 12/29/19 11:49 The data reviewed when caring for this patient included: nurse notes, prior records, etc. The history and assessments from nurses notes were reviewed and considered, and the patient's home medication list was also reviewed and considered. My assessment and the results of testing completed here in the ED were discussed with the patient/family. All questions were answered, and they express understanding of my assessment and the plan. They have been instructed to return if their symptoms worsen, and have been asked to follow up with their primary care physician to recheck today's presenting complaint. return precautions given. Lelo Chang DO #[id number] - Results/Orders Results/Orders: xray hand/wrist: no acute fracture noted. Departure - Departure Clinical Impression: Hand sprain Qualifiers: Encounter type: initial encounter Laterality: right Qualified Code(s): S63.91XA - Sprain of unspecified part of right wrist and hand, initial encounter Time of Disposition: 11:42 Disposition: Discharge to Home or Self Care Instructions: Wrist Sprain (DC) Diet: resume usual diet Activity: increase activity as tolerated Referrals: Maria Victoria Hamilton NP [Primary Care Provider] - 1 Week Home Medications: Ambulatory Orders NK 11/16/19
--- NOTE | 2019-12-29 11:43 | RAD ---
EXAM DESCRIPTION: Wrist,Right 3 Views CLINICAL HISTORY: foosh COMPARISON: None. IMPRESSION: 3 views of the right wrist show no acute fracture, focal bone destruction, or joint dislocation. Soft tissues are unremarkable. Electronically signed by: Nishant Fuentes MD 12/29/2019 11:42 AM [facility]
--- NOTE | 2019-12-29 11:43 | RAD ---
EXAM DESCRIPTION: Hand,Right 3 Views CLINICAL HISTORY: foosh COMPARISON: X-ray wrist same day IMPRESSION: 3 views of the right hand shows no acute fracture, focal bone destruction, or joint dislocation. Soft tissues are unremarkable. Electronically signed by: Nishant Fuentes MD 12/29/2019 11:41 AM [facility]
[2019-12-29 11:48] VITALS: BP 107/74; TEMP 97.8; O2SAT 98
== END 2019-12-29 11:56 | disposition home or self-care (01) ==
LOC: ER 11:06
DX: S63.91XA Sprain of unspecified part of right wrist and hand, initial encounter (principal); Z88.5 Allergy status to narcotic agent; W18.39XA Other fall on same level, initial encounter; Y93.89 Activity, other specified; Y92.9 Unspecified place or not applicable

== ENCOUNTER 2020-01-12 06:10 | Emergency (ER) | payer OTHER ==
[2020-01-12] MEDS ORDERED: SODIUM CHLORIDE 0.9% 1000ML 1,000 ML IVS ONE (06:28)
[2020-01-12] MEDS ORDERED: ONDANSETRON INJ 4 MG/2 ML VIAL IV ONE (06:28)
[2020-01-12] MEDS ORDERED: MORPHINE SULFATE INJ 10 MG/ML VIAL IV ONE (06:28)
--- NOTE | 2020-01-12 06:31 | ED.PDOC ---
History of Present Illness - General Source: patient, RN notes reviewed, Vital Signs reviewed Exam Limitations: no limitations - History of Present Illness Initial Comments: Patient is a 34-year-old female who presents to ED with right lower quadrant pain since 11:00 last night. States the pain started whenever she fell out of bed. States she was getting into bed and slipped off the edge of the bed fell off onto her left side. She denies hitting her head, loss of consciousness, headache or neck pain. Since that time has had pain in the right lower quadrant that is worse with movement. She denies any fever, nausea, vomiting, diarrhea, vaginal bleeding, hematuria or dysuria. States she has not taken anything for the pain. LMP was 01/02/20. <Alvaro Coe - Last Filed: 01/12/20 06:48> <Willy Rae - Last Filed: 01/12/20 07:57> - General Chief Complaint: Trauma Stated Complaint: fell last night Time Seen by Provider: 01/12/20 06:24 - History of Present Illness Allergies/Adverse Reactions: Allergies Morphine Allergy (Verified 12/29/19 11:48) demeral Allergy (Uncoded 12/29/19 11:48) Home Medications: Ambulatory Orders Tramadol HCl 50 mg PO Q6HR PRN 7 Days #10 tab 01/12/20 Review of Systems - Review of Systems Constitutional: Denies: chills, fever EENTM: Denies: nose congestion Respiratory: Denies: cough, short of breath Cardiology: Denies: chest pain, palpitations, syncope Gastrointestinal/Abdominal: States: abdominal pain. Denies: diarrhea, nausea, vomiting Musculoskeletal: States: back pain Neurological: Denies: headache, paresthesia All other Systems: Reviewed and Negative <Alvaro Coe - Last Filed: 01/12/20 06:48> Past Medical History (General) - Patient Medical History Hx Seizures: No Hx Stroke: No Hx Dementia: No Hx Asthma: No Hx of COPD: No Hx Cardiac Disorders: No Hx Congestive Heart Failure: No Hx Pacemaker: No Hx Hypertension: No Hx Thyroid Disease: No Hx Diabetes: No Hx Gastroesophageal Reflux: No Hx Renal Disease: No Hx Cancer: No Hx of HIV: No Hx Hepatitis C: No Hx MRSA: No - Vaccination History Hx Tetanus, Diphtheria Vaccination: No Hx Influenza Vaccination: Yes Hx Pneumococcal Vaccination: No - Social History Hx Tobacco Use: No Hx Alcohol Use: No Hx Substance Use: No Hx Depression: No - Female History Hx Last Menstrual Period: 04/17/18 Patient : No Expected Date of Delivery:: 02/01/19 <Alvaro Coe - Last Filed: 01/12/20 06:48> Family Medical History - Family History Father Family History: Unknown <Alvaro Coe - Last Filed: 01/12/20 06:48> Physical Exam - Physical Exam General Appearance: Alert, Comfortable, No apparent distress Neck: non-tender, full range of motion, supple, other - No C spine tenderness Respiratory: chest non-tender, lungs clear, normal breath sounds, no respiratory distress Cardiovascular/Chest: regular rate, rhythm, no murmur Gastrointestinal/Abdominal: soft, other - TTP in RLQ. No guarding or rebound Back Exam: normal inspection, no CVA tenderness, no vertebral tenderness Extremity: other - TTP to right hip. Pain with ROM right hip Neurologic: no motor/sensory deficits, alert, normal mood/affect Skin Exam: normal color, warm/dry <Alvaro Coe - Last Filed: 01/12/20 06:48> Progress - Progress Progress: 01/12/20 06:32 Patient presents to ED with right lower quadrant and right hip pain. States the pain began after she fell out of bed at about 11 PM last night. Whenever she fell states she landed on the left side of her back. Denies any head injury. Has had worsening pain in the right lower quadrant since that time. She has no vertebral tenderness on her neck or back. She is tender in the right lower quadrant and right hip area with no deformity. Due to abdominal tenderness, will get CT of the abdomen and pelvis to evaluate for appendicitis versus ovarian cyst versus hip injury. 01/12/20 06:49 Oncoming provider, Dr. Rae, to assume care prior to completed results. <Alvaro Coe - Last Filed: 01/12/20 06:48> - Progress Progress: 01/12/20 07:53 CT A/P shows no acute processes. Incidental finding of 2 cm Left ovarian cyst noted but doubtful this is cause of her pain. She reports feeling much better and remains stable. Labs otherwise pretty unremarkable. Pt has slight T bili elevation - pt reports recent diagnosis of Hep C for which she is being managed as outpt. Currently has no acute RUQ pain or tenderness. Discussed all findings with pt. Suspect likely lower back and lower abdominal strain/contusion as cause of pain after fall early this morning. Advised OTC analgesics. Will provide short-course PRN Rx of Tramadol. F/u closely with PCP. Dc to home in good condition, return warnings discussed. Willy Rae MD Billing #[id number] <Willy Rae - Last Filed: 01/12/20 07:57> Departure <Alvaro Coe - Last Filed: 01/12/20 06:48> - Departure Time of Disposition: 07:49 Diet: resume usual diet Activity: increase activity as tolerated <Willy Rae - Last Filed: 01/12/20 07:57> - Departure Clinical Impression: Right sided abdominal pain Strain of right hip Qualifiers: Encounter type: initial encounter Qualified Code(s): S76.011A - Strain of muscle, fascia and tendon of right hip, initial encounter Disposition: Discharge to Home or Self Care Condition: Fair Departure Forms: ED Discharge - Pt. Copy, Patient Portal Self Enrollment Instructions: DI for Trauma, Back Muscle Strain (DC) Referrals: Maria Victoria Hamilton NP [Primary Care Provider] - 1-2 Weeks Prescriptions: Tramadol HCl 50 mg PO Q6HR PRN 7 Days #10 tab PRN Reason: Pain Home Medications: Ambulatory Orders Tramadol HCl 50 mg PO Q6HR PRN 7 Days #10 tab 01/12/20 Additional Instructions: Continue taking OTC anti-inflammatories such as ibuprofen 600 mg every 6 hours as needed. You may take Tramadol as directed for breakthrough pain. Do not drive or operate heavy machinery when taking. Return if worsening or concerning symptoms develop such as worsening abdominal pain, abdominal pain with fevers, intractable nausea & vomiting, etc... Follow up with your primary care physician is recommended in next 5-7 days for repeat evaluation or sooner as needed.
[2020-01-12] MEDS ORDERED: HYDROcodone 10MG/APAP 325MG 1 EA TAB PO ONE (06:42)
--- NOTE | 2020-01-12 07:40 | CT ---
CT abdomen and pelvis with contrast TECHNIQUE: Axial images were taken through the abdomen and pelvis after the administration of IV and oral contrast.All CT scans at this facility use dose modulation, iterative reconstruction, and/or weight based dosing when appropriate to reduce radiation dose to as low as reasonably achievable HISTORY: RLQ pain s/p fall COMPARISON:None FINDINGS: Lung bases: The lung bases appear unremarkable. ABDOMEN: The liver appears unremarkable. There is no evidence for mass or intrahepatic biliary ductal dilatation. The gallbladder has been been surgically removed. The adrenal glands, pancreas and spleen are normal. The kidneys appear unremarkable. There is no evidence for hydronephrosis or stone. The large and small bowel of the abdomen and pelvis appears unremarkable. There is no evidence for acute appendicitis. Pelvis: The aorta is normal in caliber. There is no evidence for pathologically enlarged adenopathy. There is a benign-appearing 2.3 cm cyst seen within the left ovary. The uterus is normal. The bladder appears unremarkable there is no free air or free fluid There is a small umbilical hernia there is no strangulation or incarceration Impression: No acute intra-abdominal or pelvic process.. Electronically signed by: Manny Núñez MD 01/12/2020 7:39 AM [facility]
[2020-01-12 08:03] VITALS: BP 97/65; TEMP 97.7; O2SAT 96
== END 2020-01-12 08:00 | disposition home or self-care (01) ==
LOC: ER 06:10
DX: R10.31 Right lower quadrant pain (principal); S76.011A Strain of muscle, fascia and tendon of right hip, initial encounter; B19.20 Unspecified viral hepatitis C without hepatic coma; N83.202 Unspecified ovarian cyst, left side; W06.XXXA Fall from bed, initial encounter; Y92.9 Unspecified place or not applicable
CPT/HCPCS: 74177; 80053; 81001; 84703; 85025; J2405; J7030

== ENCOUNTER 2020-02-09 09:31 | Emergency (ER) | payer OTHER ==
--- NOTE | 2020-02-09 10:10 | ED.PDOC ---
History of Present Illness - General Chief Complaint: Respiratory Problem Time Seen by Provider: 02/09/20 10:02 Source: patient, RN notes reviewed, Vital Signs reviewed - History of Present Illness Comments: This is a 34-year-old female with known history of hep C without history of cirrhosis presenting to the emergency department with cough, shortness of breath, sore throat, runny nose onset 3 to 4 days ago. Her son tested positive for COVID-19 earlier this week. She had prolonged, unmasked, indoor exposure to him and suspect she has COVID-19 infection at this time. She reports some nausea, no vomiting, no diarrhea. She denies any changes in taste/smell. She says she has had some subjective fevers and chills, but has not taken her temperature. She also reports an associated headache Allergies/Adverse Reactions: Allergies Morphine Allergy (Verified 02/09/20 10:25) demeral Allergy (Uncoded 02/09/20 10:25) Home Medications: Ambulatory Orders Albuterol Inhaler [Ventolin Hfa Inhaler] 1 - 2 puff INH Q4H PRN #1 inh 02/09/20 Benzonatate Perles [Tessalon Perles] 100 - 200 mg PO Q6H PRN #20 cap 02/09/20 Ibuprofen [Motrin] 400 mg PO Q6H PRN #20 tab 02/09/20 Ondansetron Odt [Zofran ODT] 4 - 8 mg PO Q6H PRN #15 tab 02/09/20 Review of Systems - Review of Systems Constitutional: States: chills, fever EENTM: States: nose congestion, throat pain. Denies: ear pain, throat swelling, mouth pain Respiratory: States: cough, short of breath. Denies: orthopnea, stridor, wheezing Cardiology: Denies: chest pain, edema Gastrointestinal/Abdominal: States: nausea. Denies: abdominal pain, constipation, diarrhea, vomiting Genitourinary: Denies: dysuria, hematuria Musculoskeletal: States: muscle pain - Generalized myalgias. Denies: joint pain, joint swelling, neck pain Neurological: States: headache. Denies: paresthesia, tingling Endocrine: States: no symptoms reported Hematologic/Lymphatic: States: no symptoms reported Past Medical History (General) - Patient Medical History Hx Seizures: No Hx Stroke: No Hx Dementia: No Hx Asthma: No Hx of COPD: No Hx Cardiac Disorders: No Hx Congestive Heart Failure: No Hx Pacemaker: No Hx Hypertension: No Hx Thyroid Disease: No Hx Diabetes: No Hx Gastroesophageal Reflux: No Hx Renal Disease: No Hx Cancer: No Hx of HIV: No Hx Hepatitis C: No Hx MRSA: No - Vaccination History Hx Tetanus, Diphtheria Vaccination: No Hx Influenza Vaccination: Yes Hx Pneumococcal Vaccination: No - Social History Hx Tobacco Use: No Hx Alcohol Use: No Hx Substance Use: No Hx Depression: No - Female History Hx Last Menstrual Period: 04/17/18 Patient : No Expected Date of Delivery:: 02/01/19 Family Medical History - Family History Father Family History: Unknown Physical Exam - Physical Exam General Appearance: Alert, Comfortable, No apparent distress, Well Developed, Well Groomed, Well Hydrated, Well Nourished ENT Exam: TMs normal, pharynx normal, other - Oropharyngeal exam deferred due to high risk for COVID-19 infection Neck: full range of motion, supple Respiratory: chest non-tender, lungs clear, normal breath sounds, no respiratory distress Cardiovascular/Chest: normal peripheral pulses, regular rate, rhythm, no edema Gastrointestinal/Abdominal: normal bowel sounds, non tender, soft Extremity: normal range of motion, non-tender, normal inspection Neurologic: no motor/sensory deficits, alert, oriented x 3 Skin Exam: normal color, warm/dry Progress - Progress Progress: 02/09/20 11:15 Rechecked. Discussed chest x-ray findings and pending COVID-19 swab. Recommended home quarantine for at least 7 days (10 days from onset of initial symptoms). Discussed plan to treat symptomatically. Recommended follow-up with PCP in 3 to 5 days for recheck DDx: COVID-19 infection versus other viral URI, pneumonia MDM: 34-year-old female with history of hep C, no reported sequela of hep C. Presenting with close COVID-19 exposure as well as symptoms suggestive of COVID- 19 infection. Strong suspicion for COVID-19 infection. COVID-19 swab is pending at the time of discharge, chest x-ray is clear, vital signs are normal. No indication for extensive blood work-up given mild nature of symptoms. Strict ER warnings given to return for worsening. Benja Calhoun DO [facility] #[id number] - Results/Orders Results/Orders: Chest x-ray reviewed personally by me at 11:15 AM. No infiltrates, no pneumothorax COVID-19 swab is pending at the time of discharge Departure - Departure Clinical Impression: Suspected 2019 novel coronavirus infection Acute bronchitis Qualifiers: Bronchitis organism: unspecified organism Qualified Code(s): J20.9 - Acute bronchitis, unspecified Disposition: Discharge to Home or Self Care Condition: Good Departure Forms: ED Discharge - Pt. Copy, Patient Portal Self Enrollment, ED Discharge - Work Release Instructions: Coronavirus Disease 2019 (COVID-19) (DC), Acute Bronchitis, Adult (DC) Diet: resume usual diet Activity: increase activity as tolerated Referrals: STACI SILVER NP [Primary Care Provider] - 1-5 Days Prescriptions: Ibuprofen [Motrin] 400 mg PO Q6H PRN #20 tab PRN Reason: Pain Benzonatate Perles [Tessalon Perles] 100 - 200 mg PO Q6H PRN #20 cap PRN Reason: Cough Albuterol Inhaler [Ventolin Hfa Inhaler] 1 - 2 puff INH Q4H PRN #1 inh PRN Reason: Shortness Of Breath Ondansetron Odt [Zofran ODT] 4 - 8 mg PO Q6H PRN #15 tab PRN Reason: Nausea Home Medications: Ambulatory Orders Albuterol Inhaler [Ventolin Hfa Inhaler] 1 - 2 puff INH Q4H PRN #1 inh 02/09/20 Benzonatate Perles [Tessalon Perles] 100 - 200 mg PO Q6H PRN #20 cap 02/09/20 Ibuprofen [Motrin] 400 mg PO Q6H PRN #20 tab 02/09/20 Ondansetron Odt [Zofran ODT] 4 - 8 mg PO Q6H PRN #15 tab 02/09/20
--- NOTE | 2020-02-09 11:30 | RAD ---
EXAM: X-RAY, Chest (1 View) HISTORY: Cough, SOB, + COVID contact. COMPARISON: None. TECHNIQUE: AP view of the chest. FINDINGS: Lungs: The lungs are clear. Pleural space: No pneumothorax or pleural effusion is present. Heart: The heart is normal in size. Bones: No acute bone abnormality. IMPRESSION: No acute cardiopulmonary finding. Electronically signed by: Arnoldo Easton MD 02/09/2020 11:29 AM [facility]
[2020-02-09 11:37] VITALS: BP 123/72; TEMP 98.3; O2SAT 97
== END 2020-02-09 11:35 | disposition home or self-care (01) ==
LOC: ER 09:31
DX: J20.9 Acute bronchitis, unspecified (principal); Z20.828 Contact with and (suspected) exposure to other viral communicable diseases; Z88.5 Allergy status to narcotic agent; Z86.19 Personal history of other infectious and parasitic diseases